=== PATIENT | male | born 1960 | race Caucasian/White ===

== ENCOUNTER 2018-11-01 00:47 | Emergency (ER) | payer OTHER ==
[~2018-11-01] VITALS: Ht 182.9 cm; Wt 79.4 kg
--- NOTE | 2018-11-01 01:05 | NUR ---
Note undone in EDM - 11/01/18 at 0241 by KPAHERNANDEZ ED Nurse Note: pt walked in c/o LUQ abd pain x5 days, constant, 05/03, denies n/v/d, Normal BM yesterday, denies problem with urination. pt AA&ox4, skin warm and dry, resp even and unlabored on RA, active BS, abd soft and nondistended, noted tenderness on RUQ, VSS, will cont monitor.
--- NOTE | 2018-11-01 01:05 | NUR ---
ED Nurse Note: pt walked in c/o LUQ abd pain x5 days, constant, 05/03, denies n/v/d, Normal BM yesterday, denies problem with urination. pt AA&ox4, skin warm and dry, resp even and unlabored on RA, active BS, abd soft and round, distended noted tenderness on RUQ, VSS, will cont monitor.
[2018-11-01 01:08] VITALS: BP 155/94
--- NOTE | 2018-11-01 01:16 | Emergency Room Report ---
History of Present Illness General Chief Complaint: Abdominal Pain Source: Patient Present Illness HPI This is a 57-year-old male with no past medical history. He drinks a couple drinks a night. He presents with chief complaint of left upper quadrant left flank pain for 6 days now. Also with some abdominal distention. Pain is 5 out of 10. No nausea no vomiting. No fever or chills. Nothing made it better. Worse with movement and palpation. Never had this problem before. No urinary complaint. No hematuria. Allergies: Coded Allergies: No Known Allergies (Unverified , 11/01/18) Patient History Past Medical History: see triage record, old chart reviewed Past Surgical History: none Pertinent Family History: none Social History: Reports: alcohol use Immunizations: other Reviewed Nursing Documentation: PMH: Agreed; PSxH: Agreed Nursing Documentation-PMH Past Medical History: No Stated History Review of Systems Eye: Denies: eye pain, blurred vision ENT: Denies: ear pain, nose congestion, throat swelling Respiratory: Denies: cough, shortness of breath Cardiovascular: Denies: chest pain, palpitations Gastrointestinal: Reports: abdominal pain; Denies: diarrhea, nausea, vomiting Musculoskeletal: Denies: back pain, joint pain Skin: Denies: rash Neurological: Denies: headache, numbness Endocrine: Denies: increased thirst, increased urine Hematologic/Lymphatic: Denies: easy bruising All Other Systems: negative except mentioned in HPI Physical Exam Vital Signs Date Time Temp Pulse Resp B/P (MAP) Pulse Ox O2 Delivery O2 Flow Rate FiO2 11/01/18 00:57 98.2 98 16 155/94 97 Room Air vitals with high blood pressure Sp02 EP Interpretation: reviewed, normal General Appearance: well appearing, no apparent distress, alert Head: normocephalic, atraumatic Eyes: bilateral eye PERRL, bilateral eye EOMI ENT: hearing grossly normal, normal pharynx Neck: full range of motion, supple, no meningismus Respiratory: chest non-tender, lungs clear, normal breath sounds Cardiovascular #1: regular rate, rhythm, no murmur Gastrointestinal: normal bowel sounds, no mass, no organomegaly, no bruit, non- distended, tenderness - Mild left upper quadrant Musculoskeletal: back normal, gait/station normal, normal range of motion Neurologic: alert, oriented x3 Psychiatric: mood/affect normal Skin: warm/dry Medical Decision Making Diagnostic Impression: Primary Impression: Alcohol abuse Additional Impressions: Cirrhosis of liver Qualified Codes: K70.30 - Alcoholic cirrhosis of liver without ascites Fatty liver, alcoholic ER Course Patient presents with abdominal pain and distention. This is secondary to cirrhosis with ascites. No evidence of infection. No evidence of appendicitis or acute abdomen. We'll discharge home. Lab Results Impression labs with thrombocytopenia CT/MRI/US Diagnostic Results CT/MRI/US Diagnostic Results : Imaging Test Ordered: CT abdomen and pelvis Impression Read by radiologist. Severe fatty liver. Cirrhosis. Last Vital Signs Date Time Temp Pulse Resp B/P (MAP) Pulse Ox O2 Delivery O2 Flow Rate FiO2 11/01/18 01:08 98.2 98 16 155/94 100 Room Air Status: improved Disposition: HOME, SELF-CARE Condition: Stable Additional Instructions: Stop drinking alcohol. You have evidence of liver disease of your alcohol. Avoid Tylenol products. Follow-up with your doctor in 7 days. Return if symptom worsen. Ashu Rubin MD Nov 01, 2018 01:16
--- NOTE | 2018-11-01 01:31 | NUR ---
ED Nurse Note: pt off to CT blood and urine specimen sent.
[2018-11-01 01:33] LABS: BASOPHILS % (AUTO) 0.9 % (0.0-2.0); EOSINOPHILS % (AUTO) 1.5 % (0.0-3.0); HEMATOCRIT 41.1 % (42.0-52.0); HEMOGLOBIN 14.2 G/DL (14.2-18.0); MEAN CORPUSCULAR VOLUME 93 FL (80-99); MONOCYTES % (AUTO) 9.4 % (1.0-10.0); NEUTROPHILS % (AUTO) 59.2 % (45.0-75.0); PLATELET COUNT 138 K/UL (150-450); RED CELL DISTRIBUTION WIDTH 11.5 % (11.6-14.8); WHITE BLOOD COUNT 7.1 K/UL (4.8-10.8)
[2018-11-01 01:35] LABS: APPEARANCE,URINE CLEAR; BILIRUBIN, URINE NEGATIVE (NEGATIVE); COLOR,URINE PALE YELLOW; GLUCOSE, URINE (UA) NEGATIVE (NEGATIVE); KETONES,URINE NEGATIVE (NEGATIVE); LEUKOCYTE ESTERASE ,URINE NEGATIVE (NEGATIVE); NITRITE,URINE NEGATIVE (NEGATIVE); PH,URINE 5 (4.5-8.0); PROTEIN,URINE NEGATIVE (NEGATIVE); UROBILINOGEN,URINE NORMAL MG/DL (0.0-1.0)
[2018-11-01 01:43] LABS: ANION GAP 14 mmol/L (5-15); BLOOD UREA NITROGEN 15 mg/dL (7-18); CALCIUM 8.8 MG/DL (8.5-10.1); CARBON DIOXIDE 22 MMOL/L (21-32); CHLORIDE 103 MMOL/L (98-107); CREATININE 0.9 MG/DL (0.55-1.30); POTASSIUM 3.4 MMOL/L (3.5-5.1); SODIUM 138 MMOL/L (136-145)
[2018-11-01 01:47] LABS: ALANINE AMINOTRANSFERASE 72 U/L (12-78); ALBUMIN 3.8 G/DL (3.4-5.0); ALBUMIN/GLOBULIN RATIO 0.8 (1.0-2.7); ALKALINE PHOSPHATASE 109 U/L (46-116); ASPARTATE AMINO TRANSFERASE 97 U/L (15-37); BILIRUBIN,TOTAL 0.4 MG/DL (0.2-1.0)
[2018-11-01 02:39] VITALS: BP 130/87
--- NOTE | 2018-11-01 02:41 | NUR ---
ED Nurse Note: pt cleared to be d/c per ERMD, pt discharge and aftercare instruction provided w/ prescription, pt education done via discussion and handout, pt advised to follow up with pcp to continue care or return to ed if sx worsen or new sx develop, pt verbalized understanding and agrees with plan, vss, ambulatory w/ steady gait, iv d/c and ID band removed, left w/ all belongings.
--- NOTE | 2018-11-01 10:59 | Diagnostic Imaging Report ---
Indication: Left-sided abdominal pain for 2 days Technique: Spiral acquisitions obtained through the abdomen and pelvis. No oral contrast utilized, per emergency room physician request No IV contrast utilized, per referring physician request.. Multiplanar reconstructions were generated. Total dose length product 788.61 mGycm. CTDIvol(s) 14.79 mGy. Dose reduction achieved using automated exposure control Comparison: None Findings: There is inflammation of the pericolonic fat adjacent to the proximal descending colon. This may be surrounding an epiploic appendage. No definite colonic diverticulosis is demonstrated. The appendix is normal. No small bowel distention. No free or loculated intraperitoneal gas or fluid is evident. The distal esophagus, stomach, duodenum are unremarkable. There are tiny bilateral inguinal hernias which contain only fat. Lack of IV contrast limits assessment of solid organs. The liver is diffusely hypoattenuating, consistent with fatty infiltration. Although there is no surface nodularity, there is relative prominence of the left lobe and slightly lobulated contour, raising possibility of underlying cirrhotic change. No focal abnormality. The gallbladder, bile ducts, pancreas, spleen, adrenals, kidneys are unremarkable. There is nonspecific stranding of the bilateral perinephric fat. No retroperitoneal or mesenteric mass or adenopathy. No pelvic mass or adenopathy. The included lung bases demonstrate minimal atelectasis on the left, are otherwise clear. The bones are unremarkable. Impression: Inflammation of the pericolonic fat adjacent to the proximal descending colon. There is no evidence of diverticulosis, findings most likely represent epiploic appendicitis Fatty liver. Equivocal hepatic contour abnormality could indicate underlying cirrhosis Incidental finding of small fat-containing bilateral inguinal hernias This agrees with the preliminary interpretation provided overnight by [facility] teleradiology service. The CT scanner at [facility] is accredited by the [employer] and the scans are performed using protocols designed to limit radiation exposure to as low as reasonably achievable to attain images of sufficient resolution adequate for diagnostic evaluation.
== END 2018-11-01 02:43 | disposition home or self-care (01) ==
LOC: EMR 01:30
DX: K70.30 Alcoholic cirrhosis of liver without ascites (principal); K70.0 Alcoholic fatty liver
CPT/HCPCS: 36415; 74176; 80053; 81003; 83690; 85025; 96360; 99284